=== PATIENT | female | born 1975 | race Caucasian/White ===

== ENCOUNTER 2018-09-02 13:53 | Emergency (ER) | payer MEDICAID, OTHER ==
[~2018-09-02] VITALS: Ht 152.4 cm; Wt 71.4 kg
[~2018-09-02 13:53] MED LIST: ACET500C5 PO; HYDR-3498 PO; POLY17PO6 PO
--- NOTE | 2018-09-02 21:29 | ERD ---
ER Documentation Chief Complaint Chief Complaint clinic referral for ectopic . VB x1d denies pain, no NVD HPI 42-year-old female patient with recent history of vaginal bleeding presents from her clinic for possible ectopic today. Patient was at outside ER 3 days ago for vaginal bleeding at [facility], she was found to have a beta-hCG level of 975 and hemoglobin of 12.4. Patient follow-up with her clinic at [facility] today and was found to have a beta-hCG level of 1033 and an ultrasound reading that said a right adnexal cystlike structure consistent with a gestational sac about 5 weeks and 1 day. Patient currently does not have any vaginal bleeding and does not have any pelvic pain. She denies fevers or chills. She denies abdominal pain, nausea, vomiting. Otherwise no other modifying factors noted, no treatments tried at home. Patient does not have any significant past chronic medical history. ROS All systems reviewed and are negative except as per history of present illness. Medications Home Meds Active Scripts Ondansetron (Ondansetron Odt) 4 Mg Tab.rapdis, 4 MG PO Q6H PRN for NAUSEA AND/OR VOMITING, #15 TAB Prov:LUISA KNIGHT DO 09/03/18 Acetaminophen* (Tylophen*) 500 Mg Capsule, 1 CAP PO Q4 PRN for PAIN AND OR ELEVATED TEMP, #30 CAP Prov:INA ERICKSON PA-C 04/16/15 Polyethylene Glycol* (Miralax*) 17 Gm Powd.pack, 17 GM PO DAILY PRN for RASHAWN for 30 Days, PACKET Prov:TENA MADRID NP 03/02/15 Hydrocodone Bit-Acetaminophen* (Lueders*) 5-325 Mg Tab, 1 TAB PO Q6 PRN for PAIN, #15 TAB Prov:KARINA RODRIGUEZ PA-C 02/26/15 Allergies Allergies: Coded Allergies: No Known Allergy (Unverified , 04/19/15) PMhx/Soc History of Surgery: No Anesthesia Reaction: No Hx Neurological Disorder: No Hx Respiratory Disorders: No Hx Cardiac Disorders: No Hx Psychiatric Problems: No Hx Miscellaneous Medical Probl: No Hx Alcohol Use: No Hx Substance Use: No Hx Tobacco Use: No Smoking Status: Never smoker FmHx Family History: No coronary disease Physical Exam Vitals Vital Signs Date Temp Pulse Resp B/P (MAP) Pulse Ox O2 O2 Flow FiO2 Time Delivery Rate 09/02/18 99.1 91 16 129/73 98 14:07 (91) Physical Exam Const: No acute distress Resp: Clear to auscultation bilaterally Cardio: Regular rate and rhythm, no murmurs Abd: Soft, non tender, non distended. Normal bowel sounds Skin: No petechiae or rashes Back: No midline or flank tenderness Ext: No cyanosis, or edema Neur: Awake and alert Psych: Normal Mood and Affect Result Diagram: 09/02/18223309/02/182233 Results 24 hrs Laboratory Tests Test 09/02/18 22:34 White Blood Count 13.4 10^3/ul Red Blood Count 3.92 10^6/ul Hemoglobin 11.6 g/dl Hematocrit 36.0 % Mean Corpuscular Volume 91.8 fl Mean Corpuscular Hemoglobin 29.6 pg Mean Corpuscular Hemoglobin Concent 32.2 g/dl Red Cell Distribution Width 14.1 % Platelet Count 281 10^3/UL Mean Platelet Volume 10.1 fl Immature Granulocytes % 0.400 % Neutrophils % 64.3 % Lymphocytes % 28.8 % Monocytes % 5.1 % Eosinophils % 1.0 % Basophils % 0.4 % Nucleated Red Blood Cells % 0.0 /100WBC Immature Granulocytes # 0.060 10^3/ul Neutrophils # 8.6 10^3/ul Lymphocytes # 3.9 10^3/ul Monocytes # 0.7 10^3/ul Eosinophils # 0.1 10^3/ul Basophils # 0.1 10^3/ul Nucleated Red Blood Cells # 0.0 10^3/ul Sodium Level 140 mmol/L Potassium Level 3.8 mmol/L Chloride Level 102 mmol/L Carbon Dioxide Level 29 mmol/L Anion Gap 9 Blood Urea Nitrogen 8 mg/dl Creatinine 0.50 mg/dl Est Glomerular Filtrat Rate mL/min > 60 mL/min Glucose Level 95 mg/dl Calcium Level 9.4 mg/dl Total Bilirubin 0.6 mg/dl Direct Bilirubin 0.00 mg/dl Indirect Bilirubin 0.6 mg/dl Aspartate Amino Transf (AST/SGOT) 18 IU/L Alanine Aminotransferase (ALT/SGPT) 26 IU/L Alkaline Phosphatase 53 IU/L Total Protein 7.7 g/dl Albumin 4.6 g/dl Globulin 3.10 g/dl Albumin/Globulin Ratio 1.48 Current Medications Medications Dose Sig/Rashawn Start Time Status Last (Trade) Ordered Route PRN Stop Time Admin Dose Reason Admin 50 mg ONCE ONCE 09/02/18 DC 09/02/18 Methotrexate IM 23:30 09/02/18 23:30 23:31 (Methotrexate ) Procedures/MDM Medical Decision Making: Patient appeared well on physical exam. No pelvic pain on examination ED course:. Vital signs reviewed and normal Records from patient's clinic reviewed, concerning for ectopic Discussed case with Dr. Odom, [facility] at the patient's clinic, recommended repeat US Repeat OB ultrasound here in the ER showed no intrauterine , there was a 1.7 cm right corpus luteal cyst, possible right ectopic measuring 5.4 x 3.5 x 3.1 cm Discussed the options with the patient, given that she has a history of left salpingectomy for prior ruptured ectopic and has had a few spontaneous abortions, patient wants to preserve her right adnexa and desires to be again. She would prefer not to have surgery and wants to try medical management. Case discussed further with Dr. Odom after ultrasound results returned. Recommended medical management versus surgery. Given patient's preference for medical management, it was agreed by myself and Dr. Odom and that patient will receive methotrexate here in the ER with close follow-up with [facility] Discussed with patient that she will need close follow-up with [facility] as well as repeat clinic follow-ups if she wants medical management. She agrees with plan. CBC: no e/o of systemic infection or severe anemia CMP: no e/o severe acidosis, alkalosis, renal failure, diabetic ketoacidosis, liver disease Contraindications to methotrexate reviewed. There is no renal failure or liver disease noted. There is no active pulmonary disease or peptic ulcer disease. Patient is not currently breast-feeding. Outside labs reviewed, beta-hCG done at the clinic today was 1033 She was given methotrexate 50 mg IM. Prescription(s): Patient given prescription for supportive medication(s). Just with Dr. Macedo's office was given to patient. Patient advised to follow- up in clinic tomorrow. Patient is aware that one dose of methotrexate may not be enough for treatment of ectopic . Therefore she is advised that she may need multiple follow-up visits and repeat blood work with her [facility]. She does agree with plan. Patient advised if she has any abdominal pain or vaginal bleeding to return immediately to the ER. Patient advised to follow up with PCP in 1-2 days. Patient advised to return to ED for new or worsening symptoms. Patient stable on discharge from the ED. Disclaimer: Inadvertent spelling and grammatical errors are likely due to EHR/dictation software use and do not reflect on the overall quality of patient care. Also, please note that the electronic time recorded on this note does not necessarily reflect the actual time of the patient encounter. Departure Diagnosis: Primary Impression: Ectopic Location of ectopic : tubal Intrauterine status: without intrauterine Laterality: right Qualified Codes: O00.101 - Right tubal without intrauterine Condition: Stable Patient Instructions: Ectopic , Methotrexate For Ectopic Referrals: JEREMY DAWSON MICHAEL DO September 02, 2018 21:29
[2018-09-02] MEDS ORDERED: METHOTREXATE 50 MG INJ IM ONE (23:30)
[2018-09-03 00:09] VITALS: Ht 152.4 cm; Wt 71.4 kg
[2018-09-03] MEDS ORDERED: ONDA4TAB14 PO (01:42)
[2018-09-03 02:26] VITALS: BP 126/76; PULSE 68; RESP 19
== END 2018-09-03 04:34 | disposition home or self-care (01) ==
LOC: FTE 13:53
DX: O00.101 Right tubal pregnancy without intrauterine pregnancy (principal)
CPT/HCPCS: 36415; 76801; 76817; 80053; 85025; 96372; J9260; Z7502